=== PATIENT | male | born 1985 | race Hispanic/Latino ===

== ENCOUNTER 2020-07-18 08:10 | Day surgery (SDC) | payer OTHER ==
[~2020-07-18 08:10] MED LIST: SODIUM CHLORIDE 0.9% 1000 ML 1,000 ML IV SCH
--- NOTE | 2020-07-18 09:39 | Anesthesia Consultation ---
Anesthesia Consult and Med Hx Date of service: 07/18/20 - Airway Anesthetic Teeth Evaluation: Caps ROM Head & Neck: Adequate Mental/Hyoid Distance: Adequate Mallampati Class: Class II Intubation Access Assessment: Good - Pre-Operative Health Status ASA Pre-Surgery Classification: ASA2 Proposed Anesthetic Plan: MAC - Gastrointestinal Hx Gastroesophageal Reflux Disease: No (Ulcerative Colitis X 12-13 years)
--- NOTE | 2020-07-18 09:39 | Anesthesia Day of Surgery ---
Anesthesia Day of Surgery - Day of Surgery Patient Examined: Yes Patient H&P Reviewed: Yes Patient is NPO: Yes
[2020-07-18] MEDS ORDERED: LIDOCAINE MPF (2%) 20 MG/1 ML VIAL 5 ML ONE (10:44)
[2020-07-18] MEDS ORDERED: propofoL 200 MG/20 ML VIAL IV ONE ×2 (10:44→10:57)
[2020-07-18] MEDS ORDERED: SODIUM CHLORIDE 0.9% 1000 ML IV SOLN IV ONE (10:50)
[2020-07-18] MEDS ORDERED: fentaNYL 100 MCG/2 ML INJ ONE (10:57)
--- NOTE | 2020-07-18 11:18 | Procedure Note ---
Date of procedure: 07/18/20 Pre-op diagnosis: H/o Crohn's Disease Post-op diagnosis: other (R/o Ileitis/ R/O Dysplasia/ Normal looking Ileal and Colonoc Mucosa (suggestive of crohn's rachael in remission).) Procedure: Colonoscopy with Biopsy [place] [facility] [place]geon: JHON RODRIGUEZ Estimated blood loss: minimal Pathology: list Specimen disposition: to lab Condition: stable Disposition: same day (Avoid aspirin and NSAID for 5 days; otherwise resume home medication and follow up in 1 to 2 weeks ([phone]).)
[2020-07-18 11:31] VITALS: BP 97/56
--- NOTE | 2020-07-18 11:50 | Operative Report ---
PROCEDURE: Colonoscopy with biopsy. INDICATIONS: This is a 35-year-old white male with a long history of Crohn's disease, on Remicade. Colonoscope was done to make sure that he was still in remission and there were no changes in his mucosa suggestive of dysplasia. DESCRIPTION OF PROCEDURE: The procedure was done after getting informed consent with MAC anesthesia. Initial rectal exam was unremarkable. Instrument was passed through the rectum onto the cecum, which was identified with ileocecal valve and the appendiceal orifice. Visualization was fair to good. The terminal ileum was intubated, showed normal mucosa. Biopsy was done to rule out for possible ileitis. Cecum, ascending colon, transverse colon, descending colon, and sigmoid showed normal mucosa as well as the rectum showed normal mucosa suggested that the Crohn's disease is in remission. Biopsy was done from the proximal colon, the transverse colon for 1 bottle and in additional, biopsy was done from the left colon to make sure that there were not any changes or dysplasia. The rectum appeared normal on the retroverted view. There was minimal bleeding associated with the procedure. No complications associated with the procedure. ASSESSMENT: Colonoscopy with biopsy, history of Crohn's disease which appears to be in remission, rule out ileitis, rule out dysplasia secondary to the Crohn's disease. Normal ileal as well as colon mucosa suggested that the Remicade is working and the patient appears to be in remission. PLAN: To have the patient avoid aspirin and aspirin-related products for the next few days and follow up in the office in 1-2 weeks' time. The procedure was done in the GI lab with assistance of the GI lab team, which included the GI nurse, Jai morrissey and with assistance of anesthesia. JOB# [id number] MUSHTAQ/BOB
--- NOTE | 2020-07-18 14:39 | Post Anesthesia Evaluation ---
- Post Anesthesia Evaluation Patient Participated: Yes Airway Patent: Yes Stable Respiratory Function: Yes Nausea/Vomiting: No Temp > 96.8F: Yes Pain Manageable: Yes Adequeate Hydration: Yes Anesthesia Complications: No Block Receding Appropriately: Not Applicable Patient on Ventilator: No
== END 2020-07-18 08:11 | disposition home or self-care (01) ==
LOC: GIO 08:10
DX: Z12.11 Encounter for screening for malignant neoplasm of colon (principal); K63.89 Other specified diseases of intestine; K52.89 Other specified noninfective gastroenteritis and colitis; K21.9 Gastro-esophageal reflux disease without esophagitis
CPT/HCPCS: 45380; 88305; J2704; J3010; J7030